=== PATIENT | male | born 1945 | race Caucasian/White ===

== ENCOUNTER → 2017-07-24 | Outpatient (CLI) | payer OTHER | LOC: BHFA 14:30 | PROVIDERS: ATTEND Internal Medicine Cardiovascular Disease | DX: R06.00 Dyspnea, unspecified (principal) ==

== ENCOUNTER → 2018-11-05 | Outpatient (CLI) | payer OTHER, MEDICARE | LOC: FIMAGING 09:58 | PROVIDERS: ATTEND Radiology Diagnostic Radiology | DX: R06.02 Shortness of breath (principal); R06.2 Wheezing; R07.9 Chest pain, unspecified ==

== ENCOUNTER → 2019-01-29 | Outpatient (CLI) | payer OTHER, MEDICARE ==
[~2019-01-29] MED LIST: ACETAMINOPHEN 325 MG TAB PO ONE; IMMUNE GLOBULIN 10 GM/100 ML VIAL IV ONE; IMMUNE GLOBULIN 20 GM/200 ML VIAL IV ONE; diphenhydrAMINE 25 MG CAP PO ONE
[2019-01-29 10:21] VITALS: BP 118/65
== END ==
LOC: F1NOP 09:22
PROVIDERS: ATTEND Internal Medicine
DX: Z53.20 Procedure and treatment not carried out because of patient's decision for unspecified reasons (principal)